=== PATIENT | female | born 1965 | race Caucasian/White ===

== ENCOUNTER 2023-02-21 10:08 | Emergency (ER) | payer OTHER ==
[~2023-02-21] VITALS: Ht 162.6 cm; Wt 68.0 kg
[2023-02-21] MEDS ORDERED: HYDROCODONE/APAP 10-325 MG TABLET ONE (10:57)
[2023-02-21] MEDS ORDERED: HYDROCODONE/APAP 10-325 MG TABLET PO ONE (11:00)
[2023-02-21 11:13] LABS: BASOPHILS # (AUTO) 0.1 K/UL (0.0-0.2); BASOPHILS % (AUTO) 1.1 % (0.0-2.0); EOSINOPHILS % (AUTO) 0.6 % (0.0-7.0); HEMATOCRIT 36.9 % (31.2-41.9); HEMOGLOBIN 12.7 g/dL (10.9-14.3); LYMPHOCYTES # (AUTO) 1.5 K/uL (0.8-4.8); LYMPHOCYTES % (AUTO) 26.3 % (20.5-51.5); MEAN CORPUSCULAR HEMOGLOBIN 30.7 uug (24.7-32.8); MEAN CORPUSCULAR HGB CONC 35 g/dL (32.3-35.6); MEAN CORPUSCULAR VOLUME 89.1 fL (75.5-95.3); MONOCYTES # (AUTO) 0.3 K/uL (0.1-1.30); NEUTROPHILS # (AUTO) 3.7 K/uL (1.8-8.9); PLATELET COUNT (AUTO) 269 K/uL (179-408); RED BLOOD CELL COUNT(AUTO) 4.15 MIL/uL (3.63-4.92); RED CELL DISTRIBUTION WIDTH 12.9 % (12.3-17.7); WHITE BLOOD COUNT (AUTO) 5.5 K/uL (3.8-11.8)
[2023-02-21 11:14] LABS: DIFFERENTIAL COMMENT 1
[2023-02-21 11:18] LABS: CALCIUM 8.7 mg/dL (8.5-10.1); CREATININE 0.6 mg/dL (0.6-1.3); POTASSIUM 3.8 mmol/L (3.5-5.1)
[2023-02-21] MEDS ORDERED: ACET1TAB23 PO (11:50)
[2023-02-21 12:11] VITALS: BP 131/77; TEMP 98; O2SAT 99
== END 2023-02-21 12:48 | disposition home or self-care (01) ==
LOC: ER 10:12
DX: M54.50 Low back pain, unspecified (principal); Z79.899 Other long term (current) drug therapy; V49.9XXA Car occupant (driver) (passenger) injured in unspecified traffic accident, initial encounter; Y93.89 Activity, other specified; Y92.410 Unspecified street and highway as the place of occurrence of the external cause; Y99.8 Other external cause status
CPT/HCPCS: 36415; 72072; 72100; 85025; A4606; A4663

== ENCOUNTER 2023-02-28 09:27 | Emergency (ER) | payer OTHER ==
[~2023-02-28] VITALS: Ht 160 cm; Wt 74.8 kg
[~2023-02-28 09:27] MED LIST: ACET1TAB23 PO
[2023-02-28] MEDS ORDERED: ONDA4TAB5 PO (09:56)
[2023-02-28] MEDS ORDERED: ACET1TAB23 PO (09:56)
[2023-02-28 10:36] VITALS: BP 130/80; TEMP 98; O2SAT 99
== END 2023-02-28 10:00 | disposition home or self-care (01) ==
LOC: ER 09:30
DX: F07.81 Postconcussional syndrome (principal); Z79.899 Other long term (current) drug therapy
CPT/HCPCS: A4606; A4663

== ENCOUNTER 2023-03-21 14:23 | Emergency (ER) | payer OTHER ==
[~2023-03-21] VITALS: Ht 162.6 cm; Wt 59.0 kg
[~2023-03-21 14:23] MED LIST changes: +ONDA4TAB5 PO
[2023-03-21] MEDS ORDERED: SULF1TAB48 PO (15:03)
[2023-03-21] MEDS ORDERED: CEPH500C2 PO (15:04)
[2023-03-21 15:16] VITALS: BP 96/56; O2SAT 99
== END 2023-03-21 15:17 | disposition home or self-care (01) ==
LOC: ER 14:24
DX: L03.113 Cellulitis of right upper limb (principal); Z79.899 Other long term (current) drug therapy; T63.451A Toxic effect of venom of hornets, accidental (unintentional), initial encounter; Y92.89 Other specified places as the place of occurrence of the external cause
CPT/HCPCS: A4606; A4663